=== PATIENT | female | born 1980 | race African-American/Black ===

== ENCOUNTER 2018-10-10 11:09 | Emergency (ER) | payer OTHER ==
[~2018-10-10] VITALS: Ht 167.6 cm; Wt 60.0 kg
[2018-10-10] MEDS ORDERED: ONDANSETRON INJ 8 MG in DEXTROSE 5% 50 ML IV STA (11:12)
[2018-10-10] MEDS ORDERED: SOD CHLORIDE 0.9% 1,000 ML IV STA (11:12)
[2018-10-10 11:13] VITALS: Ht 167.6 cm; Wt 60.0 kg
--- NOTE | 2018-10-10 11:18 | ERD ---
ER Documentation Chief Complaint Chief Complaint CODE GREEN: C/O DIZZINESS. NO KO. A&OX4 HPI 38-year-old woman complains of dizziness and near syncopal episode while standing, she suspects she is but has not yet had an ultrasound. Patient denies dysuria, no vaginal bleeding, no vaginal discharge and has an obstetrics appointment later this afternoon. Patient denies chest pain or shortness of breath, no palpitations, no actual loss of consciousness. She states when she felt dizzy she sat down and then felt better after about 30 seconds. ROS All systems reviewed and are negative except as per history of present illness. Medications Home Meds Reported Medications Pnv Cmb#21/Iron/Folic Acid ( Complete Caplet) 1 Each Tablet, 1 EACH PO DAILY, TAB 10/10/18 Allergies Allergies: Coded Allergies: No Known Allergy (Unverified , 10/10/18) PMhx/Soc History of Surgery: No Anesthesia Reaction: No Hx Neurological Disorder: No Hx Respiratory Disorders: No Hx Cardiac Disorders: No Hx Psychiatric Problems: No Hx Miscellaneous Medical Probl: No Hx Alcohol Use: No Hx Substance Use: No Hx Tobacco Use: No Smoking Status: Never smoker FmHx Family History: No diabetes Physical Exam Vitals Vital Signs Date Temp Pulse Resp B/P (MAP) Pulse Ox O2 O2 Flow FiO2 Time Delivery Rate 10/10/18 98.2 70 17 102/74 99 11:13 (83) Physical Exam GENERAL: Well-developed, well-nourished, well-hydrated, in no apparent distress, looks nontoxic in appearance HEENT: Moist mucous membranes, pink conjunctiva, no cervical spine tenderness or step-off deformities, no goiter, no jaundice or icterus, extraocular movements intact without pain. No submandibular induration, and no pharyngeal erythema NEURO: Alert and oriented 3, cranial nerves II through XII intact bilaterally, pupils equal round reactive to light, no focal deficits or facial asymmetry, sensation intact distally Strength 5/5 in upper and lower extremities bilaterally CARDIAC: Regular rate and rhythm, no murmurs rubs or gallops LUNGS: Clear bilaterally no wheezing crackles or stridor ABDOMEN: Soft nontender, no guarding, no rigidity, no rebound, no psoas sign no obturator sign. Normoactive bowel sounds SKIN: Warm and dry to touch, no abrasions, contusions, or hematomas, no lacerations, no ecchymosis, no target lesions, and without ulcers EXTREMITIES: No clubbing cyanosis or edema, calves are bilaterally symmetrical, no Homans sign, no popliteal cord sign. Distal pulses equal and bilateral PSYCH: Normal affect without agitation or irritability Result Diagram: 10/10/18 1125 10/10/18 1125 Results 24 hrs Laboratory Tests Test 10/10/18 11:24 10/10/18 11:25 10/10/18 11:52 Urine Color YELLOW Urine Clarity CLEAR Urine pH 7.0 Urine Specific Hurley 1.015 Urine Ketones NEGATIVE mg/dL Urine Nitrite NEGATIVE mg/dL Urine Bilirubin NEGATIVE mg/dL Urine Urobilinogen NEGATIVE mg/dL Urine Leukocyte Esterase NEGATIVE Rohan/ul Urine Hemoglobin NEGATIVE mg/dL Urine Glucose NEGATIVE mg/dL Urine Total Protein NEGATIVE mg/dl White Blood Count 10.3 10^3/ul Red Blood Count 3.55 10^6/ul Hemoglobin 10.9 g/dl Hematocrit 32.9 % Mean Corpuscular Volume 92.7 fl Mean Corpuscular Hemoglobin 30.7 pg Mean Corpuscular 33.1 g/dl Hemoglobin Concent Red Cell Distribution Width 12.0 % Platelet Count 263 10^3/UL Mean Platelet Volume 9.2 fl Immature Granulocytes % 0.600 % Neutrophils % 78.5 % Lymphocytes % 13.5 % Monocytes % 6.1 % Eosinophils % 0.8 % Basophils % 0.5 % Nucleated Red Blood Cells % 0.0 /100WBC Immature Granulocytes # 0.060 10^3/ul Neutrophils # 8.1 10^3/ul Lymphocytes # 1.4 10^3/ul Monocytes # 0.6 10^3/ul Eosinophils # 0.1 10^3/ul Basophils # 0.1 10^3/ul Nucleated Red Blood Cells # 0.0 10^3/ul Sodium Level 134 mmol/L Potassium Level 4.1 mmol/L Chloride Level 103 mmol/L Carbon Dioxide Level 24 mmol/L Anion Gap 7 Blood Urea Nitrogen 10 mg/dl Creatinine 0.45 mg/dl Est Glomerular Filtrat > 60 mL/min Rate mL/min Glucose Level 81 mg/dl Calcium Level 9.4 mg/dl Total Bilirubin 0.5 mg/dl Direct Bilirubin 0.00 mg/dl Indirect Bilirubin 0.5 mg/dl Aspartate Amino 23 IU/L Transf (AST/SGOT) Alanine 20 IU/L Aminotransferase (ALT/SGPT) Alkaline Phosphatase 38 IU/L Troponin I < 0.012 ng/ml Total Protein 7.0 g/dl Albumin 3.8 g/dl Globulin 3.20 g/dl Albumin/Globulin Ratio 1.18 Lipase 37 U/L Serum HCG, Qualitative POSITIVE POC Beta HCG, Qualitative POSITIVE Current Medications Medications Dose Sig/Michael Start Time Status Last (Trade) Ordered Route PRN Stop Time Admin Dose Reason Admin Sodium 1,000 ml @ Q1H STAT 10/10/18 DC 10/10/18 Chloride 1,000 mls/hr IV 11:12 11:24 10/10/18 12:11 Ondansetron 54 ml @ ONCE STAT 10/10/18 DC HCl 8 200 mls/hr IV 11:12 mg/Dextrose 10/10/18 11:28 Procedures/MDM IV line was established patient was placed on electronic device monitor rhythm strip revealed a sinus rhythm at about 80 bpm with upright P and T waves. Patient was afebrile EKG performed, read by me revealed a normal sinus rhythm at 76 bpm, normal axis, narrow QRS complex, no concerning ST elevations or depressions noted. I administered 1 L normal saline IV and Zofran 4 mg IV for dizziness. CBC and electrolytes are normal, liver function tests were normal, urinalysis negative for infection, troponin negative, test positive Obstetric ultrasound performed revealing a 16-week IUP with heart tones. Differential diagnoses considered, included but not limited to acute coronary syndrome, pulmonary embolism, aortic dissection, abdominal aortic aneurysm, sepsis, stroke, meningitis, encephalitis, pneumonia, appendicitis, cholecystitis, bowel obstruction, pyelonephritis, nephrolithiasis, cystitis, as well as metabolic, hematologic, and electrolyte abnormalities. As well as abscess, cellulitis, fractures, and dislocations. Patient feels much better at this time, and vital signs are normal, symptoms have improved. I did give strict instructions to return to the ED if symptoms continue or worsen, patient will otherwise follow-up with primary care physician. Patient understood instructions and agreed to plan. Disclaimer: Inadvertent spelling and grammatical errors are likely due to EHR/dictation software use and do not reflect on the overall quality of patient care. Also, please note that the electronic time recorded on this note does not necessarily reflect the actual time of the patient encounter. Departure Diagnosis: Primary Impression: Dizziness Additional Impression: Second trimester Condition: Good JEREMIE UMANA MD Oct 10, 2018 11:18
[2018-10-10] MEDS ORDERED: PNV1TABL12 PO (11:50)
[2018-10-10 13:33] VITALS: BP 112/79; PULSE 65; RESP 16
== END 2018-10-10 13:34 | disposition home or self-care (01) ==
LOC: E/R 11:09
DX: O99.89 Other specified diseases and conditions complicating pregnancy, childbirth and the puerperium (principal); R42 Dizziness and giddiness; R40.2142 Coma scale, eyes open, spontaneous, at arrival to emergency department; R40.2362 Coma scale, best motor response, obeys commands, at arrival to emergency department; R40.2252 Coma scale, best verbal response, oriented, at arrival to emergency department; Z3A.16 16 weeks gestation of pregnancy
CPT/HCPCS: 36415; 76801; 80053; 81003; 81025; 83690; 84484; 84703; 85025; 93005; 99285; J7030; J2405